=== PATIENT | male | born 1970 | race Caucasian/White ===

== ENCOUNTER → 2021-10-04 | Outpatient (CLI) | payer OTHER ==
[2021-10-04 19:59] LABS: Percent Saturation 15.3 % (20.0-50.0)
== END | disposition home or self-care (01) ==
LOC: EDSTATUS 09:17 → LAB 16:48 → LAB SHORT 16:48
PROVIDERS: Internal Medicine Hematology & Oncology
DX: D50.0 Iron deficiency anemia secondary to blood loss (chronic) (principal)
CPT/HCPCS: 82728; 83540; 83550